=== PATIENT | male | born 1940 | race Caucasian/White ===

== ENCOUNTER → 2016-02-13 | Outpatient (CLI) | payer MEDICARE ==
[~2016-02-13] MED LIST: ASP81TEC PO; ATR20T PO; CATHETER FLUSH 10 ML SYR IV PRN; CHOL2000 PO; CHOL5000 PO; CINN500C7 PO; CLOP75TA PO; DIPH25TA82 PO; DOXY-233 PO; ENXP100I SC; FEXO30OR PO; FEXO60TA PO; FISH OIL 1,2001 EAC1 PO; IBUP-30 PO; INSASP10V SQ; INSU100I23 SQ; INSU100V5 SQ; LISI20TA PO; LISI40TA PO; METF-380 PO; NF-TYLARTH PO; PNT40TEC PO; SMV20T PO; WARF6TAB PO; WRF1T PO; WRF3T PO; tylenol arthritis
[2016-02-13 09:23] VITALS: BP 148/81
[2016-02-13 09:27] VITALS: BP 156/90
--- NOTE | 2016-02-14 10:03 | STRESS TEST ---
PROCEDURE PHYSICIAN: DASH CASTRO EXERCISE MYOVIEW STRESS TEST REPORT DATE OF PROCEDURE: 02/13/2016 REFERRING PHYSICIAN: Dr. Tameka Montes Baseline heart rate is 91, baseline blood pressure: 156/76. Baseline EKG: Sinus rhythm with no ischemic changes. SUMMARY: The patient was injected with 10.23 mCi of technetium 99 Myoview and the resting images were obtained. Then the patient started exercising with a baseline heart rate and blood pressure, EKG mentioned above. At minute 2 he was injected with 31.3 mCi of technetium 99 Myoview. The patient was able to finish a total of 3 minutes 30 seconds on standard Lit protocol, achieving maximum heart rate of 136, which is 96% of maximum expected heart rate. With peak exercise level, EKG was showing minimal nondiagnostic changes. Blood pressure was 156/76. During recovery, heart rate and blood pressure returned to baseline, EKG returned to baseline. The resting and stress images were reviewed and compared in the short axis, horizontal long axis, and vertical long axis views. Review of the images showed diaphragmatic attenuation with mild decreased uptake at the inferoapical segment, with no significant ischemia. SSS is 1, SDS 1, t.i.d. value 0.99. On the gated images, the left ventricle appeared to be normal size with mild hypokinesia at the inferior wall. Calculated ejection fraction 45%. CONCLUSION: 1. Fair exercise tolerance a total of 3 minutes 30 seconds on standard Lit protocol. Total of 4.6 METs, achieving 96% of maximum expected heart rate. 2. Appropriate heart rate and blood pressure response to exercise. Returned to baseline during recovery. 3. Diaphragmatic attenuation with typical male pattern with no significant ischemia or infarction on SPECT images. 4. Normal left ventricular size and mild hypokinesia at the inferior wall. Calculated ejection fraction 45%. Job ID: [id number] Dictated Date: 02/13/2016 19:24:37 [employer]ids Management Technician Date: 02/14/2016 09:57:55 / magda
== END ==
LOC: CARD 07:10
PROVIDERS: ATTEND Physician Assistant
DX: I35.1 Nonrheumatic aortic (valve) insufficiency (principal); I25.10 Atherosclerotic heart disease of native coronary artery without angina pectoris; I65.23 Occlusion and stenosis of bilateral carotid arteries; I10 Essential (primary) hypertension
CPT/HCPCS: 78452; 93017

== ENCOUNTER → 2016-02-19 | Outpatient (CLI) | payer MEDICARE ==
[~2016-02-19] MED LIST changes: -CATHETER FLUSH 10 ML SYR IV PRN
--- NOTE | 2016-02-21 07:41 | ECHOCARDIOGRAPHY REPORT ---
PROCEDURE PHYSICIAN: DASH CASTRO DATE OF PROCEDURE: 02/19/2016 TWO DIMENSIONAL ECHOCARDIOGRAM REPORT PRIMARY PHYSICIAN: OTHER PHYSICIAN: REFERRING PHYSICIAN: Dr. Montes ORDERING PHYSICIAN: INDICATION FOR THE PROCEDURE: 1. Aortic regurgitation. 2. Coronary artery disease. MEASUREMENTS DERIVED VALUES LV DIAMETER (LAX) NORMALS NORMALS Diastolic 5.2 (3.6-5.2) Eject. Fract. 60% (60%+/-6%) Systolic (2.3-3.9) Diastolic Vol. % Shortening (0.22-0.42) Systolic Vol. Aortic Root IVS THICKNESS Diastolic 1.1 (0.6-1.1) LVPW THICKNESS Diastolic 1.1 (0.6-1.1) LA DIAMETER Systolic 4.2 (2.1-3.7) FINDINGS: 1. Technical quality is good. 2. The left ventricle is normal in size with mild left ventricular hypertrophy noted diffusely. Systolic function appeared to be normal. Estimated ejection fraction 60%. Diastolic dysfunction is suggested by Doppler. 3. The left atrium is mildly dilated. No clot or thrombus were seen within the left atrium. 4. The right atrium and right ventricle are normal in size. No clot or thrombus were seen within the right side. 5. Mitral valve is calcified with mild mitral regurgitation noted by color Doppler flow. No mitral valve prolapse. No mitral valve stenosis. 6. Aortic valve is heavily calcified. Doppler across the aortic valve estimated the peak gradient of 42 mmHg, mean gradient of 30 mmHg, calculated valve area of 1.4 sq cm which is mild to moderate aortic valve stenosis. Some deterioration compared to the study of 2014. Color Doppler flow across the aortic valve showed mild aortic regurgitation. 7. Tricuspid valve is normal in morphology with mild tricuspid regurgitation noted by color Doppler flow. Doppler across tricuspid valve estimated pulmonary artery pressure of 29+ right atrial. 8. Pulmonic valve is functioning normally. 9. No pericardial effusion. IN CONCLUSION: 1. Mild left ventricular hypertrophy noted diffusely. Systolic function appeared to be normal. Estimated ejection fraction 60%. Diastolic dysfunction is suggested by Doppler. 2. Mildly dilated left atrium. 3. Mild to moderate aortic valve stenosis. Some degeneration compared to the study of 2014 and 2013. Mild aortic regurgitation. 4. Mild mitral regurgitation, mild tricuspid regurgitation. 5. Estimated pulmonary artery pressure of 35 mmHg. Job ID: [id number] Dictated Date: 02/20/2016 15:29:07 Bee Rancher Date: 02/21/2016 07:36:00 / garrett
== END ==
LOC: CARD 13:35
PROVIDERS: ATTEND Physician Assistant
DX: I35.1 Nonrheumatic aortic (valve) insufficiency (principal); I25.10 Atherosclerotic heart disease of native coronary artery without angina pectoris; I65.23 Occlusion and stenosis of bilateral carotid arteries; I10 Essential (primary) hypertension
CPT/HCPCS: 93306

== ENCOUNTER → 2016-11-20 | Outpatient (CLI) | payer MEDICARE | LOC: CARD 10:11 | PROVIDERS: ATTEND Internal Medicine Cardiovascular Disease | DX: I35.1 Nonrheumatic aortic (valve) insufficiency (principal); I25.10 Atherosclerotic heart disease of native coronary artery without angina pectoris; I65.23 Occlusion and stenosis of bilateral carotid arteries; I10 Essential (primary) hypertension; E78.2 Mixed hyperlipidemia | CPT/HCPCS: 93306 ==

== ENCOUNTER → 2017-06-24 | Outpatient (CLI) | payer MEDICARE | LOC: CARD 10:22 | PROVIDERS: ATTEND Physician Assistant | DX: I08.3 Combined rheumatic disorders of mitral, aortic and tricuspid valves (principal); I25.10 Atherosclerotic heart disease of native coronary artery without angina pectoris; I10 Essential (primary) hypertension | CPT/HCPCS: 93306 ==

== ENCOUNTER 2017-09-23 08:10 | Outpatient (RCR) | payer MEDICARE | END 2017-11-12 | disposition home or self-care (01) | LOC: CR 08:10 | PROVIDERS: ATTEND Thoracic Surgery (Cardiothoracic Vascular Surgery) | DX: Z48.812 Encounter for surgical aftercare following surgery on the circulatory system (principal); Z95.2 Presence of prosthetic heart valve | CPT/HCPCS: 93798 ==

== ENCOUNTER → 2019-07-25 | Outpatient (CLI) | payer MEDICARE | LOC: CARD 12:57 | PROVIDERS: ATTEND Physician Assistant | DX: I08.0 Rheumatic disorders of both mitral and aortic valves (principal); I25.10 Atherosclerotic heart disease of native coronary artery without angina pectoris; E78.2 Mixed hyperlipidemia; I27.20 Pulmonary hypertension, unspecified; I11.9 Hypertensive heart disease without heart failure; Z95.2 Presence of prosthetic heart valve | CPT/HCPCS: 93306 ==

== ENCOUNTER → 2020-02-13 | Outpatient (CLI) | payer MEDICARE ==
--- NOTE | 2020-02-13 15:21 | Diagnostic Imaging Report ---
INDICATION: Back pain. COMPARISON: None. FINDINGS: Frontal and lateral radiographic views of the sacrum and coccyx were obtained. There is acute angulation at the sacrococcygeal junction. There is no prior available for comparison. Otherwise, no acute osseous abnormality is seen. SI joints are symmetric. Pubic symphysis is within normal limits. No unexpected radiopaque foreign bodies are seen. IMPRESSION: 1. Acute angulation at sacrococcygeal junction. This is not an uncommon finding. Acute injury cannot be excluded given the lack of prior exams for comparison purposes. If there is concern for acute fracture to this area, MRI is advised. Dictated by: Dictated on workstation # [id number]
--- NOTE | 2020-02-13 15:23 | Diagnostic Imaging Report ---
INDICATION: Lower back pain. COMPARISON: None. FINDINGS: Frontal and lateral radiographic views of the lumbar spine were obtained. Evaluation of static alignment shows slight grade 1 anterolisthesis at L5-S1. There is no evidence of jumped facets. Evaluation of the lumbar vertebral body heights demonstrates compression of the superior endplate of L1. This however is age-indeterminate. Otherwise, lumbar vertebral body heights are maintained. There is mild multilevel intervertebral disc height loss. Endplate sclerotic changes with osteophyte formations are also noted at T12-L1. There is also multilevel facet arthropathy and probable bilateral L5 pars defects at L5. Included small bowel loops are nondistended. Note is made of calcified aortic atherosclerosis. IMPRESSION: 1. Probable bilateral L5 pars defects with mild grade 1 anterolisthesis at L5-S1. 2. Age-indeterminate compression of the superior endplate of L1. If there is concern for acute fracture, correlation with MRI is recommended. If MRI is contraindicated, whole body bone scan with SPECT imaging could be performed. Dictated by: Dictated on workstation # [id number]
== END ==
LOC: RAD 14:40
PROVIDERS: ATTEND Internal Medicine
DX: M43.17 Spondylolisthesis, lumbosacral region (principal); M51.06 Intervertebral disc disorders with myelopathy, lumbar region
CPT/HCPCS: 72100; 72220

== ENCOUNTER → 2020-11-13 | Outpatient (CLI) | payer MEDICARE | LOC: CARD 08:30 | PROVIDERS: ATTEND Internal Medicine Cardiovascular Disease | DX: I11.9 Hypertensive heart disease without heart failure (principal); I25.10 Atherosclerotic heart disease of native coronary artery without angina pectoris; Z95.2 Presence of prosthetic heart valve | CPT/HCPCS: 93306 ==

== ENCOUNTER → 2021-07-24 | Outpatient (CLI) | payer MEDICARE ==
[~2021-07-24] VITALS: Ht 185 cm; Wt 104.0 kg
[~2021-07-24] MED LIST changes: +CATHETER FLUSH 10 ML SYR IVP PRN
[2021-07-24 09:02] VITALS: BP 154/94
--- NOTE | 2021-07-29 08:08 | Cardiology Stress Test Report ---
Stress Test Report Date of Procedure/Referring: Date of Procedure: Jul 24, 2021 PCP Tameka Montes DO Admitting Physician Admitting Physician: Attending Physician: Darnell Myers MD Indications: HTN Baseline Heart Rate: 67 Baseline Blood Pressure: Blood Pressure Systolic: 154 Blood Pressure Diastolic: 94 Vital Signs Date Time Temp Pulse Resp B/P (MAP) Pulse Ox O2 Delivery O2 Flow Rate FiO2 07/24/21 09:02 67 154/94 (114) 96 Room Air Baseline Vital Signs Vital Signs Date Time Temp Pulse Resp B/P (MAP) Pulse Ox O2 Delivery O2 Flow Rate FiO2 07/24/21 09:02 67 154/94 (114) 96 Room Air Baseline EKG: Baseline EKG: NSR Summary: After explaining the procedure and details to the patient, he signed the consent and was brought to the stress nuclear laboratory. Patient exercised on standard Lit protocol, EKG, heart rate and blood pressure were monitored continuously, resting and stress doses of radio tracer were injected, imaging was acquired and reviewed in the short axis, horizontal long axis and vertical long axis views Patient was able to exercise for a total of 3 minutes on Lit protocol, METs 4.6 Maximum heart rate 128 Maximum blood pressure 201/87 Stress EKG, Minimal nondiagnostic changes Recovery EKG, Return to baseline TID: 1.04 SSS: 8 SDS: 7 EF: 51 Conclusion: 1. Fair exercise tolerance for a total of 3 minutes on standard Lit protocol, 4.6 METS achieving 93% of maximum expected heart rate 2. Appropriate heart rate response to exercise with hypertensive response to exercise, peak blood pressure 201/87 returned to baseline during recovery 3. Minimal nondiagnostic EKG changes with exercise return to baseline during recovery 4. Reversible ischemia involving the inferior wall and inferolateral wall 5. Normal left ventricular size, EF 51% Copy Copies To 1: TAMEKA MONTES BASHAR J MD Jul 29, 2021 08:08
== END ==
LOC: CARD 07:30
PROVIDERS: ATTEND Internal Medicine Cardiovascular Disease
DX: I10 Essential (primary) hypertension (principal); I25.10 Atherosclerotic heart disease of native coronary artery without angina pectoris
CPT/HCPCS: 78452; 93017; A9502

== ENCOUNTER 2021-07-31 14:00 | Day surgery (SDC) | payer MEDICARE ==
[~2021-07-31] VITALS: Ht 185.4 cm; Wt 105.4 kg
[2021-07-31] VITALS (11 sets, daily range): BP systolic 124–179; BP diastolic 69–99
[2021-07-31 12:38] LABS: HEMATOCRIT 45 % (40-54); HEMOGLOBIN 14.4 g/dL (13.3-17.7); MEAN CORPUSCULAR HEMOGLOBIN 27 pg (25-34); MEAN CORPUSCULAR HGB CONC 32 g/dL (32-36); MEAN CORPUSCULAR VOLUME 84 fL (80-99); MEAN PLATELET VOLUME 10.1 fL (9.0-12.2); PLATELET COUNT 175 10^3/uL (130-400); WHITE BLOOD COUNT 5.2 10^3/uL (4.3-11.0)
[2021-07-31 12:39] LABS: BILIRUBIN,URINE NEGATIVE (NEGATIVE); CLARITY,URINE SL CLOUDY; COLOR,URINE YELLOW; GLUCOSE, URINE (UA) NEGATIVE (NEGATIVE); KETONES,URINE NEGATIVE (NEGATIVE); LEUKOCYTE ESTERASE ,URINE TRACE (NEGATIVE); NITRITE,URINE POSITIVE (NEGATIVE); PROTEIN,URINE TRACE (NEGATIVE)
--- NOTE | 2021-07-31 12:40 | Diagnostic Imaging Report ---
Indication: Hypertension and chest pain. Time of Exam: 12:15 PM Comparison is made with prior chest from 01/19/2013. Findings: The heart size is normal. The pulmonary vascularity is unremarkable. The lungs are clear. No infiltrate, effusion or pneumothorax is detected. Impression: No acute cardiopulmonary process is detected. Dictated by: Dictated on workstation # [id number]
[2021-07-31 12:50] LABS: INR 1.4 (0.8-1.4); PROTHROMBIN TIME PATIENT 17.4 SEC (12.2-14.7)
[2021-07-31 12:51] LABS: BACTERIA,URINE TRACE /HPF
[2021-07-31 12:58] LABS: ALBUMIN 4.2 GM/DL (3.2-4.5); BILIRUBIN,TOTAL 1.2 MG/DL (0.1-1.0); CALCIUM 9.3 MG/DL (8.5-10.1); CREATININE SERUM 0.96 MG/DL (0.60-1.30); POTASSIUM 4.1 MMOL/L (3.6-5.0); TOTAL PROTEIN 7.5 GM/DL (6.4-8.2)
--- NOTE | 2021-07-31 13:38 | Conscious Sedation/ASA ---
Conscious Sedation Pre-Proced Time 13:38 ASA Score 3 For ASA 3 and 4: Consider anesthesia and medical clearance. Also, for patients with a history of failed moderate sedation consider anesthesia. Airway Lungs Heart ASA score ASA 1: a normal healthy patient ASA 2: a patient with a mild systemic disease (mid diabetes, controlled hypertension, obesity x ASA 3: a patient with a severe systemic disease that limits activity (angina, COPD, prior Myocardial infarction) ASA 4: a patient with an incapacitating disease that is a constant threat to life (CHF, renal failure) ASA 5: a moribund patient not expected to survive 24 hrs. (ruptured aneurysm) ASA 6: a declared brain- patient whose organs are being harvested. For emergent operations, add the letter E after the classification Mallampati Classification Grade 3 Sedation Plan Analgesia, Amnesia, Plan communicated to team members, Discussed options with patient/fam, Discussed risks with patient/fam The patient is an appropriate candidate to undergo the planned procedure, sedation, and anesthesia. The patient immediately re-assessed prior to indication. DASH CASTRO MD Jul 31, 2021 13:38
[~2021-07-31 14:00] MED LIST changes: +ACET325T38 PO; +AMLO-250 PO; +AMLO-251 PO; +ASCO100024 PO; +ASPI-1238 PO; +ATOR20TA66 PO; -CATHETER FLUSH 10 ML SYR IVP PRN; +CHOL200052 PO; +DIPH25TA31 PO; +FLUT9.9S NS; +HEParin (CATH LAB) 1,000 ML IV ONE; +INSU100I14 SQ; +INSU100I29 SQ; +LIDOCAINE 1% INJ 20 ML VIAL ONE; +LISI20TA26 PO; +METF-479 PO; +MIDAZOLAM 5 MG/5 ML (VERSED) VIAL ONE; +NS IV 1000 ML 1,000 ML IV SCH; +NS IV 1000 ML 1,000 ML ONE; +PANT40TA52 PO; +WARF6TAB49 PO; +ZINC50TA58 PO; +fentaNYL INJ 100 MCG/2 ML AMP ONE
[2021-07-31] MEDS ORDERED: METF-479 PO (14:14)
[2021-07-31] MEDS ORDERED: NS IV 1000 ML 1,000 ML IV SCH (14:15)
[2021-07-31] MEDS ORDERED: PATIENT MAY USE OWN MEDS, ALL PO SCH (14:15)
--- NOTE | 2021-07-31 14:15 | Discharge Inst-Post CATH ---
Discharge Inst-CATH/EP Problems Reviewed?: Yes Post Cardiac Cath/EP D/C Inst Follow Up/Plan Hold metformin for [address] Myers's office in 2 to 4 weeks <b>CARDIAC CATH/EP PROCEDURE DISCHARGE INSTRUCTIONS</b> ACTIVITY * Go Home directly and rest. * Limit activity of the leg (or wrist if it was used) for 7 days including aerobics, swimming, jogging, bicycling, etc. * Restrict stair-climbing for 7 days if possible, if not, climb up with your non-cath leg, then bring together on the same step. * Avoid lifting, pushing, pulling or excessive movement of the affected extremity for 7 days. * Customary sexual activity may be resumed after 2 days-use caution not to use a position that strains or causes pain to the affected extremity. * No driving for 24 hours. * NO SMOKING. * Avoid straining for bowel movements for 7 days. * Gentle walking on level ground is allowed. * Returning to work will depend on the type of procedure and the results. Your doctor will discuss this with you. CALL YOUR DOCTOR FOR ANY OF THE FOLLOWING: *If bleeding from the puncture site occurs- Apply gentle pressure to site with clean cloth and call your doctor or EMS. * If a knot or lump forms under the skin, increases in size, or causes pain. * If bruising appears to be worsening or moving further down your leg instead of disappearing. * Temperature above 101 F. CARE OF YOUR GROIN INCISION; * Bruising or purple discoloration of the skin near the puncture site is common. * You may shower only, no bathtub bathing for 5 days. Be careful to avoid slipping as your leg may feel stiff. * If a closure device was used on your femoral artery, please see the attached guide regarding care of the device and your leg. * Leave dressing on FOR 24 hours. CARE OF YOUR WRIST INCISION; * Bruising or purple discoloration of the skin near the puncture site is common. * You may shower. * DO NOT submerge wrist. * Leave dressing on FOR 24 hours. DASH MYERS MD Jul 31, 2021 14:15
--- NOTE | 2021-07-31 14:20 | Cardiac Cath Report ---
Cardiac Cath Report Physician (s)/Washer Off (s) Physician DASH CASTRO MD Pre-Procedure Diagnosis Pre-Procedure Diagnosis: Coronary artery disease Post-Procedure Note Procedure Start Date: Jul 31, 2021 Name of Procedure: Coronary angiogram Fluoroscopy of prosthetic aortic valve Findings/Procedure Note PROCEDURE NOTE: 81-year-old gentleman with history of aortic valve replacement, coronary artery disease, had an abnormal stress test, scheduled for cardiac catheterization possible PTCA. After explaining the procedure to the patient, all pros and cons were explained, all questions were answered. The patient signed the consent and then he was placed on the cardiac catheterization laboratory. Groin was prepped SL fashion local anesthesia was used. Sheath placed in the right femoral artery. Obey right and left catheter were used to access the coronary system. At the end of the procedure the sheath was removed. Closure device was deployed FINDINGS: Hemodynamics LV was not measured, aortic valve was not crossed Aorta 140/70 mean of 80 ANATOMY: Left Main is free of obstructive disease Left Anterior Descending has mild disease with patent stent no obstructive disease Left Circumflex has mild disease nonobstructive disease Right Coronary Artery has mild disease nonobstructive disease Fluoroscopy showed struts of prosthetic valve in the aortic position. Appeared to be normal CONCLUSION: 1. Patent stent in the LAD with mild coronary artery disease nonobstructive disease 2. 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
--- NOTE | 2021-08-01 16:51 | Physician Query-Final Dx ---
CARL LOPEZ 08/01/21 1651: Clinic Account Progress/Dx Physician Query: Please give diagnosis After studies, can you clarify if the patient has CAD with angina, or CAD without angina. Assessment stated chest pain resembling anginia. No mention on cath report. Thank you 1. Coronary artery disease with angina. 2. Coronary artery disease without angina Date of Service Jul 31, 2021 at 14:00 DASH CASTRO MD 08/02/21 0656: Clinic Account Progress/Dx Physician Query: Please give diagnosis DIAGNOSIS: Diagnosis Coronary artery disease without angina CARL LOPEZ Aug 01, 2021 16:51 DASH CASTRO MD Aug 02, 2021 06:56
== END 2021-07-31 19:04 | disposition home or self-care (01) ==
LOC: CATH 14:00 → SDC 14:34 → CATH 19:04
PROVIDERS: ATTEND Internal Medicine Cardiovascular Disease
DX: I25.10 Atherosclerotic heart disease of native coronary artery without angina pectoris (principal); I10 Essential (primary) hypertension; D68.51 Activated protein C resistance; E11.9 Type 2 diabetes mellitus without complications; I65.23 Occlusion and stenosis of bilateral carotid arteries; E78.5 Hyperlipidemia, unspecified; Z95.2 Presence of prosthetic heart valve; Z79.01 Long term (current) use of anticoagulants; Z79.84 Long term (current) use of oral hypoglycemic drugs; Z79.4 Long term (current) use of insulin; Z79.82 Long term (current) use of aspirin; Z87.891 Personal history of nicotine dependence; Z95.5 Presence of coronary angioplasty implant and graft; Z88.1 Allergy status to other antibiotic agents; Z88.2 Allergy status to sulfonamides
CPT/HCPCS: 71045; 80053; 80061; 81000; 85027; 85610; 85730; 87077; 87081; 87088; 87186; 93005; 93454; C1760; C1894; 36415

== ENCOUNTER → 2022-01-06 | Outpatient (CLI) | payer MEDICARE ==
[~2022-01-06] MED LIST changes: -HEParin (CATH LAB) 1,000 ML IV ONE; -LIDOCAINE 1% INJ 20 ML VIAL ONE; -MIDAZOLAM 5 MG/5 ML (VERSED) VIAL ONE; -NS IV 1000 ML 1,000 ML IV SCH; -NS IV 1000 ML 1,000 ML ONE; -fentaNYL INJ 100 MCG/2 ML AMP ONE
--- NOTE | 2022-01-06 13:33 | Diagnostic Imaging Report ---
EXAMINATION: CT abdomen and pelvis without contrast. TECHNIQUE: Multiple contiguous axial images were obtained through the abdomen and pelvis without the use of intravenous contrast. All CT scans use one or more of the following dose optimizing techniques: automated exposure control, MA and/or KvP adjustment based on patient size and exam type or iterative reconstruction. HISTORY: Abdominal pain and hematuria COMPARISON: None available. FINDINGS: Limited views of the lower thorax show an 8 mm lingular nodule. There are few smaller nodules in the left lower lobe. The liver is normal without focal lesion. There is no biliary ductal dilation. There are stones in the gallbladder. No wall thickening or pericholecystic fluid. Pancreas is normal. Spleen is normal. Adrenal glands are normal. The kidneys are normal. There is no hydronephrosis. No renal or ureteral stones. Bladder is decompressed and mildly thick-walled. Bowel is normal in caliber without obstruction or inflammation. There is diverticulosis without diverticulitis. The appendix is normal. No free fluid or air. No abdominal or pelvic lymphadenopathy. Aorta is normal in caliber without aneurysm. There are no suspicious osseus lesions. There are mild compression fractures of L1, L2, L4 and L5. IMPRESSION: 1. No renal or ureteral stones. Decompressed bladder with mild wall thickening, correlate for cystitis. Dictated by: Dictated on workstation # [id number]
== END ==
LOC: RAD 11:18
PROVIDERS: ATTEND Internal Medicine
DX: N32.9 Bladder disorder, unspecified (principal)
CPT/HCPCS: 74176

== ENCOUNTER → 2022-06-13 | Outpatient (CLI) | payer MEDICARE ==
[~2022-06-13] MED LIST changes: -INSU100I29 SQ; +INSU100I30 SQ
== END ==
LOC: CARD 09:47
PROVIDERS: ATTEND Internal Medicine Cardiovascular Disease
DX: I10 Essential (primary) hypertension (principal); I25.10 Atherosclerotic heart disease of native coronary artery without angina pectoris; Z95.2 Presence of prosthetic heart valve
CPT/HCPCS: 93306